=== PATIENT | male | born 1970 | race Caucasian/White ===

== ENCOUNTER 2018-04-10 21:24 | Emergency (ER) | payer OTHER, SELFPAY ==
[2018-04-10 21:42] VITALS: BP 151/98; PULSE 89; RESP 15; TEMP 36.9; O2SAT 96; BMI 27.1
[2018-04-10 21:44] VITALS: TEMP 36.9
[2018-04-10] MEDS: PROPARACAINE 0.5% OPHTH SOL 2 DROPS EYE-RIGHT (22:41)
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
[2018-04-10 22:44] VITALS: BP 144/81; PULSE 87; RESP 16; O2SAT 100
== END 2018-04-10 22:54 | disposition home or self-care (01) ==
PROVIDERS: Emergency Provider Emergency Medicine
DX: H16.299 Other keratoconjunctivitis, unspecified eye (principal)
CPT/HCPCS: 99283

== ENCOUNTER → 2019-06-11 09:25 | Outpatient (CLI) | payer SELFPAY ==
[2019-06-11 13:08] LABS: Liquefaction Semen YES (YES); Sperm Count 200 x10^6/mL (20-150); Sperm Morphology 50 %ABNORM (0-30); Sperm Motility 20% % Motile; Volume Semen 2.5 (1.0-5.0)
== END ==
PROVIDERS: Visit Provider Specialist
DX: N46.9 Male infertility, unspecified (principal)
CPT/HCPCS: 89320